=== PATIENT | female | born 1995 | race Caucasian/White ===

== ENCOUNTER 2019-11-28 06:00 | Emergency (ER) | payer SELFPAY ==
[~2019-11-28] VITALS: Ht 149.9 cm; Wt 59.0 kg
[2019-11-28 06:05] VITALS: BP 125/77
[2019-11-28] MEDS ORDERED: KETOROLAC 60 MG/2 ML VIAL IM ONE (06:05)
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
--- NOTE | 2019-11-28 06:12 | NUR ---
PT MEDICATED TORADOL IM ON LT DELTOID SITE. TOLERATED WELL.
--- NOTE | 2019-11-28 06:27 | NUR ---
PT UNABLE TO VOID DUE TO SEVERE BACK PAIN. DR DELGADO AWARE. VERBAL ORDER FOR STRAIGHT CATHETERIZATION RECEVIED.
--- NOTE | 2019-11-28 06:35 | NUR ---
URINE SAMPLE COLLECTED AND PLACED IN DIRTY [employer]ILITY FOR PICKUP
--- NOTE | 2019-11-28 06:39 | NUR ---
PHONED XRAY AND INFORMED THEM THE PT IS READY FOR XRAY
--- NOTE | 2019-11-28 06:43 | NUR ---
PT TAKEN BY AARON VIA [facility].
--- NOTE | 2019-11-28 07:07 | NUR ---
PT BACK FROM XRAY
--- NOTE | 2019-11-28 07:08 | NUR ---
Pt report given to BINU VALENTE. Transfer of care at this time.
--- NOTE | 2019-11-28 07:28 | NUR ---
DR. LUND SPEAKING WITH PT AT BEDSIDE
--- NOTE | 2019-11-28 07:40 | NUR ---
Patient discharged with v/s stable. Written and verbal after care instructions given and explained. Patient alert, oriented and verbalized understanding of instructions. Wheel Chair Assisted to lobby to wait for picket [employer] by friend. All questions addressed prior to discharge. ID band removed. Patient advised to follow up with PMD. Rx of ibuprofen given. Patient educated on indication of medication including possible reaction and side effects. Opportunity to ask questions provided and answered.
[2019-11-28 07:42] VITALS: BP 110/55
== END 2019-11-28 07:40 | disposition home or self-care (01) ==
LOC: MED 06:00
DX: S39.012A Strain of muscle, fascia and tendon of lower back, initial encounter (principal); X58.XXXA Exposure to other specified factors, initial encounter; Y93.89 Activity, other specified; Y92.89 Other specified places as the place of occurrence of the external cause; Y99.8 Other external cause status
CPT/HCPCS: 72100; 96372; 99283; J1885